=== PATIENT | male | born 1995 | race African-American/Black ===

== ENCOUNTER 2018-10-06 14:56 | Emergency (ER) | payer BC, MEDICAID ==
--- NOTE | 2018-10-06 16:26 | ER Document Report ---
ED Medical Screen (RME) - General Chief Complaint: Abscess Stated Complaint: BLOOD SUGAR ISSUES,ABSCESS Time Seen by Provider: 10/06/18 16:15 Mode of Arrival: Ambulatory Information source: Patient, Relative Notes: Patient is a 23-year-old male comes to emergency room with 2 complaints 1. He has an abscess that is on his left buttocks it appeared about a week ago it popped about 2 days ago and has been draining. Patient's girlfriend states she is been pushing on it to keep it open but it keeps draining. Also last night he complained to his mother that he is been drinking a lot of water and having sweats and urinating a lot she is a known insulin-dependent diabetic so she checked his sugars and his sugars were over 300. He is requesting that we check his sugar here today. He denies any nausea vomiting or diarrhea currently. He denies any other medical problems. He does smoke 3-4 cigarettes a day. TRAVEL OUTSIDE OF THE [place] 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 Allergies/Adverse Reactions: amoxicillin Allergy (Verified 10/06/18 15:18) cephalexin Allergy (Verified 10/06/18 15:18) codeine Allergy (Verified 10/06/18 15:18) divalproex sodium [From Depakote] Allergy (Verified 10/06/18 15:18) ibuprofen [From Motrin] Allergy (Verified 10/06/18 15:18) Past Medical History - General Information source: Patient - Social History Lives with: Spouse/Significant other Family history: Reviewed & Not Pertinent Renal/ Medical History: Denies: Hx Peritoneal Dialysis Physical Exam - Vital signs Vitals: Temp Pulse Resp BP Pulse Ox 98.1 F 86 16 140/72 H 98 10/06/18 15:31 10/06/18 15:31 10/06/18 15:31 10/06/18 15:31 10/06/18 15:31 Interpretation: Hypertensive - Notes Notes: PHYSICAL EXAMINATION: GENERAL: Well-appearing, well-nourished and in no acute distress. HEAD: Atraumatic, normocephalic. EYES: Pupils equal round and reactive to light, extraocular movements intact, sclera anicteric, conjunctiva are normal. LUNGS: Breath sounds clear to auscultation bilaterally and equal. No wheezes rales or rhonchi. HEART: Regular rate and rhythm without murmurs Abdomen examination patient's area of abscesses on his left buttocks at the lower pole. There is a small hole that when pressure applied drainage. NEUROLOGICAL: Cranial nerves grossly intact. Normal speech, normal gait. Normal sensory, motor exams PSYCH: Normal mood, normal affect. SKIN: Warm, Dry, normal turgor, no rashes or lesions noted. Course - Vital Signs Vital signs: Temp Pulse Resp BP Pulse Ox 98.1 F 86 16 140/72 H 98 10/06/18 15:31 10/06/18 15:31 10/06/18 15:31 10/06/18 15:31 10/06/18 15:31 Doctor's Discharge - Discharge Clinical Impression: New onset type 2 diabetes mellitus Referrals: DARNELL MORENO, [Primary Care Provider] - Follow up as needed
[2018-10-06 17:20] LABS: APPEARANCE,URINE CLEAR; BILIRUBIN,URINE NEGATIVE (NEGATIVE); COLOR,URINE YELLOW; GLUCOSE, URINE >=500 mg/dL (NEGATIVE); KETONES,URINE TRACE mg/dL (NEGATIVE); LEUKOCYTE ESTERASE,URINE NEGATIVE (NEGATIVE); NITRITE,URINE NEGATIVE (NEGATIVE); PROTEIN,URINE NEGATIVE (NEGATIVE); URINE SPECIFIC GRAVITY 1.036
[2018-10-06 17:44] LABS: VENOUS BLOOD BASE EXCESS 2.4 mmol/L; VENOUS BLOOD PCO2 52.5 mmHg (35-63); VENOUS BLOOD PH 7.36 (7.30-7.42)
[2018-10-06 17:45] LABS: ABSOLUTE LYMPHOCYTES (AUTO) 1.7 10^3/uL (0.5-4.7); ABSOLUTE MONOCYTES (AUTO) 0.4 10^3/uL (0.1-1.4); ABSOLUTE NEUT (AUTO) 4.3 10^3/uL (1.7-8.2); BASOPHILS % (AUTO) 0.3 % (0-2); EOSINOPHILS % (AUTO) 0.8 % (0-6); HEMATOCRIT 41.8 % (37.9-51.0); HEMOGLOBIN 14.1 g/dL (13.5-17.0); LYMPHOCYTES % (AUTO) 26.6 % (13-45); MEAN CORPUSCULAR HEMOGLOBIN 27.6 pg (27.0-33.4); MEAN CORPUSCULAR HGB CONC 33.7 g/dL (32.0-36.0); MEAN CORPUSCULAR VOLUME 82 fl (80-97); MONOCYTES % (AUTO) 5.7 % (3-13); PLATELET COUNT 230 10^3/uL (150-450); RED CELL DISTRIBUTION WIDTH 13.6 % (11.5-14.0); SEGMENTED NEUTROPHILS % (AUTO) 66.6 % (42-78); TOTAL CELLS COUNTED % (AUTO) 100 %; WHITE BLOOD COUNT 6.5 10^3/uL (4.0-10.5)
[2018-10-06 18:03] LABS: ALANINE AMINOTRANSFERASE 27 U/L (21-72); ALBUMIN 3.9 g/dL (3.5-5.0); ALKALINE PHOSPHATASE 87 U/L (38-126); ANION GAP 11 (5-19); ASPARTATE AMINO TRANSFERASE 38 U/L (17-59); BILIRUBIN,DIRECT 0.3 mg/dL (0.0-0.4); BILIRUBIN,TOTAL 0.5 mg/dL (0.2-1.3); BLOOD UREA NITROGEN 15 mg/dL (7-20); CALCIUM 9.3 mg/dL (8.4-10.2); CARBON DIOXIDE 28 mmol/L (22-30); CHLORIDE 98 mmol/L (98-107); POTASSIUM 4.2 mmol/L (3.6-5.0); SODIUM 136.6 mmol/L (137-145)
[2018-10-06 18:09] LABS: GLUCOSE 397 mg/dL (75-110)
[2018-10-06] MEDS ORDERED: SULFAMETHOXAZOLE/TRIMETHOPRIM 800-160 MG TABLET PO ONE (19:29)
[2018-10-06] MEDS ORDERED: INSULIN REG, HUMAN 100 UNIT/ML 3 ML VIAL (PYX) SUBCUT ONE (19:29)
--- NOTE | 2018-10-06 19:31 | ER Document Report ---
ED General - General Chief Complaint: Abscess Stated Complaint: BLOOD SUGAR ISSUES,ABSCESS Time Seen by Provider: 10/06/18 16:15 Mode of Arrival: Ambulatory Notes: Patient is a 23-year-old male without known chronic medical problems although states that in the past he has been "told I am borderline diabetic". The pat ient is presenting with concerns of hyperglycemia as well as an abscess to his right inner buttock. The patient reports over the past 3 days he has had an increasing area of swelling to his right internal buttock has a severe, throbbing, constant pain. He states that it open to began draining today and drained a large amount of purulent material. He states that he is coming in as apparently he used his mother's glucometer and found his sugar to be above 300. In regards to the abscess pain he has not trying to improve or worsen the pain although he notes that he has had some relief since it was drained. Touching the area or sitting on it seems to worsen the pain. Has a history of an abscess in a similar location in the past. He does not have a general physician. He does note some polyuria and polydipsia. No fever or constitutional symptoms. TRAVEL OUTSIDE OF THE [place] IN LAST 30 DAYS: No - Related Data Allergies/Adverse Reactions: amoxicillin Allergy (Verified 10/06/18 15:18) cephalexin Allergy (Verified 10/06/18 15:18) codeine Allergy (Verified 10/06/18 15:18) divalproex sodium [From Depakote] Allergy (Verified 10/06/18 15:18) ibuprofen [From Motrin] Allergy (Verified 10/06/18 15:18) Past Medical History - General Information source: Patient - Social History Smoking Status: Current Every Day Smoker Frequency of alcohol use: Rare Drug Abuse: None Lives with: Spouse/Significant other Family History: Reviewed & Not Pertinent Patient has suicidal ideation: No Patient has homicidal ideation: No Renal/ Medical History: Denies: Hx Peritoneal Dialysis Review of Systems - Review of Systems Notes: Constitutional: Negative for fever. HENT: Negative for sore throat. Eyes: Negative for visual changes. Cardiovascular: Negative for chest pain. Respiratory: Negative for shortness of breath. Gastrointestinal: Negative for abdominal pain, vomiting or diarrhea. Genitourinary: Negative for dysuria. Musculoskeletal: Negative for back pain. Skin: Positive for right buttock abscess Neurological: Negative for headaches, weakness or numbness. 10 point ROS negative except as marked above and in HPI. Physical Exam - Vital signs Vitals: Temp Pulse Resp BP Pulse Ox 98.1 F 86 16 140/72 H 98 10/06/18 15:31 10/06/18 15:31 10/06/18 15:31 10/06/18 15:31 10/06/18 15:31 Interpretation: Normal Notes: PHYSICAL EXAMINATION: GENERAL: Well-appearing, well-nourished and in no acute distress. HEAD: Atraumatic, normocephalic. EYES: Pupils equal round and reactive to light, extraocular movements intact, sclera anicteric, conjunctiva are normal. ENT: nares patent, oropharynx clear without exudates. Mild dry mucous membranes. NECK: Normal range of motion, supple without lymphadenopathy LUNGS: Breath sounds clear to auscultation bilaterally and equal. No wheezes rales or rhonchi. HEART: Regular rate and rhythm without murmurs ABDOMEN: Soft, nontender, normoactive bowel sounds. No guarding, no rebound. No masses appreciated. EXTREMITIES: Normal range of motion, no pitting or edema. No cyanosis. NEUROLOGICAL: No focal neurological deficits. Moves all extremities spontaneously and on command. PSYCH: Normal mood, normal affect. SKIN: Warm, Dry, normal turgor, 1 x 2 cm abscess in the right mid inner buttock that appears to have mostly drained. Course - Re-evaluation Re-evalutation: 10/06/18 19:30 Patient presents with concerns of a right buttock abscess that has drained at home mostly but continues to have some ongoing pain. Patient also presents with concerns that he has high blood sugar but notes that he has never been formally diagnosed as being diabetic in the past. I have informed patient that he does have diabetes as his nonfasting blood sugar here is 392. He is otherwise astigmatic in regards to his hyperglycemia. There is no evidence of HHS or diabetic ketoacidosis on laboratories or based on clinical history. Patient's vitals are within normal limits. Treatment with insulin and PO fluids given he re. Patient has been started on metformin and glipizide. Dietary guidelines have been provided. He has also been started on trimethoprim sulfamethoxazole for his right buttock abscess. A formal incision and drainage was also performed with no further expression of any purulent material. This does however allow an increased opening for additional purulent material to drain. At this time will discharge with return precautions and follow-up recommendations. Verbal discharge instructions given a the bedside and opportunity for questions given. Medication warnings reviewed. Patient is in agr eement with this plan and has verbalized understanding of return precautions and the need for primary care follow-up in the next 24-72 hours. - Vital Signs Vital signs: Temp Pulse Resp BP Pulse Ox 98.5 F 89 16 130/79 H 98 10/06/18 19:41 10/06/18 19:41 10/06/18 19:41 10/06/18 19:41 10/06/18 19:41 - Laboratory Result Diagrams: 10/06/18 17:25 10/06/18 17:25 Laboratory results interpreted by me: 10/06/18 10/06/18 10/06/18 16:09 16:55 17:11 Sodium Glucose POC Glucose 342 H 392 H Urine Glucose (UA) >=500 H Urine Ketones TRACE H Urine Urobilinogen 4.0 H 10/06/18 17:25 Sodium 136.6 L Glucose 397 H POC Glucose Urine Glucose (UA) Urine Ketones Urine Urobilinogen Procedures - Incision and Drainage Right Buttock Type: Simple Anesthetic type: 1% Lidocaine mL's of anesthetic: 5 Blade size: 11 I&D procedure: Betadine prep applied Incision Method: Incision made by scalpel Amount/type of drainage: 0.5 cc purulent and bloody material Discharge - Discharge Clinical Impression: New onset type 2 diabetes mellitus, Abscess of right buttock, Hyperglycemia Condition: Good Disposition: HOME, SELF-CARE Additional Instructions: You were seen for an abscess that required drainage. Please clean this area with soap and water twice daily and apply a topical antibiotic. Dress the area after each cleaning. Please return if you develop fever, vomiting, the pain at the site worsens, you notice spreading redness from the area, or you have any other symptoms that are concerning to you. You have diabetes. You need to followup urgently with your primary care doctor as your blood sugars were dangerously high today. You did not have any evidence of a dangerous condition associated with these blood sugars at this time. Howev er, it is very important that you get your blood sugars under control. Please take all of your medications exactly as directed. You should avoid foods that are high in carbohydrates and sugary foods. Losing weight will also help to better control your blood sugars. Please return to emergency department immediately if you develop weakness, persistent vomiting, confusion, or any other symptoms that are concerning to you. Prescriptions: Glipizide [Glipizide Xl] 5 mg PO DAILY #30 tab Metformin HCl [Glucophage 500 mg Tablet] 500 mg PO BID #60 tablet Sulfamethoxazole/Trimethoprim [Bactrim Ds Tablet] 2 tab PO BID #28 tablet Referrals: DARNELL MORENO, [Primary Care Provider] - Follow up tomorrow
[2018-10-06 19:43] VITALS: BP 130/79
== END 2018-10-06 20:08 | disposition home or self-care (01) ==
LOC: ER 14:56
PROC: 0H98XZZ Drainage of Buttock Skin, External Approach (ICD-10-PCS; principal; 2018-10-06)
DX: L02.31 Cutaneous abscess of buttock (principal); E11.65 Type 2 diabetes mellitus with hyperglycemia; F17.200 Nicotine dependence, unspecified, uncomplicated
CPT/HCPCS: 99285; 36415; 82962; 85025; 80053; 81001; 82803; 10060; J1815